=== PATIENT | female | born 1960 | race Caucasian/White ===

== ENCOUNTER 2023-05-30 00:17 | Emergency (ER) | payer MEDICAID ==
[~2023-05-30] VITALS: Ht 160 cm; Wt 45.4 kg
[2023-05-30 00:36] VITALS: BP_SYST 110; PULSE 114; RESP 18; TEMP 98; O2SAT 96
[2023-05-30] MEDS ORDERED: TAMSULOSIN HCL 0.4 MG CAP PO SCH (01:45)
[2023-05-30] MEDS ORDERED: CEPH-548 PO (01:52)
[2023-05-30] MEDS ORDERED: ACET-2634 PO (01:52)
[2023-05-30] MEDS ORDERED: TAMS-11 PO (01:52)
[2023-05-30 01:54] VITALS: BP_SYST 112; PULSE 82; RESP 17; TEMP 98; O2SAT 98
[2023-05-30] MEDS ORDERED: TAMSULOSIN HCL 0.4 MG CAP ONE (01:54)
== END 2023-05-30 01:54 | disposition home or self-care (01) ==
LOC: SED 00:17
DX: R33.9 Retention of urine, unspecified (principal); I10 Essential (primary) hypertension
CPT/HCPCS: 99284